=== PATIENT | female | born 1995 | race Caucasian/White ===

== ENCOUNTER 2017-05-29 00:08 | Emergency (ER) | payer MEDICAID ==
[~2017-05-29] VITALS: Ht 162.6 cm; Wt 63.0 kg
[2017-05-29 02:33] VITALS: BP 104/47
[2017-05-29 02:52] VITALS: BP 104/52
[2017-05-29 03:16] VITALS: BP 114/69
== END 2017-05-29 03:20 | disposition home or self-care (01) ==
LOC: ED 01:06
DX: O03.9 Complete or unspecified spontaneous abortion without complication (principal)
CPT/HCPCS: 36415; 36430; 76801; 84702; 85025; 86850; 86900; 99285; J2790

== ENCOUNTER 2017-06-10 21:06 | Emergency (ER) | payer MEDICAID ==
[~2017-06-10] VITALS: Ht 162.6 cm; Wt 77.9 kg
[2017-06-10 22:54] LABS: BLOOD UREA NITROGEN 15 mg/dL (7-18)
[2017-06-10] MEDS ORDERED: KETOROLAC 30 MG/1 ML ONE (23:56)
[2017-06-11] MEDS ORDERED: KETOROLAC 30 MG/1 ML IM ONE
[2017-06-11 00:47] VITALS: BP 113/58
== END 2017-06-11 00:49 | disposition home or self-care (01) ==
LOC: ED 23:59
DX: O20.0 Threatened abortion (principal)
CPT/HCPCS: 36415; 76830; 80048; 81001; 82040; 84702; 85025; 87086; 96372; 99285; J1885